=== PATIENT | male | born 1995 ===

== ENCOUNTER 2017-10-29 10:03 | Emergency (ER) | payer MEDICAID ==
--- NOTE | 2017-10-29 10:10 | ER Report ---
History and Physical Time Seen By MD: 10:09 HPI/ROS CHIEF COMPLAINT: Left wrist pain HISTORY OF PRESENT ILLNESS: Otherwise of a 22-year-old male comes emergency Department to left wrist pain stated that yesterday he fell up some stairs onto an outstretched left hand is have pain to the base of the distal radius of the left wrist no head or neck trauma no loss of consciousness no additional complaints noted has not iced or done anything else for REVIEW OF SYSTEMS: Respiratory: No cough, no dyspnea. Cardiovascular: No chest pain, no palpitations. Gastrointestinal: No vomiting, no abdominal pain. Musculoskeletal: Left wrist pain Remainder of the 14 system rev: Yes Allergies: Coded Allergies: No Known Drug Allergies (Unverified , 10/29/17) Home Meds No Active Prescriptions or Reported Meds Reviewed Nurses Notes: Yes Old Medical Records Reviewed: Yes Constitutional Vital Sign - Last 24 Hours 10/29/17 10:09 Temp 98.1 Pulse 89 Resp 14 B/P (MAP) 158/81 Pulse Ox 98 O2 Delivery Room Air Physical Exam General appearance: Alert no distress. Respiratory: Chest is non tender, lungs are clear to auscultation. Cardiac: Regular rate and rhythm [ ] Left wrist examination pain with extension and flexion primarily at the base of the distal radius neurovascularly intact pain with rotation supination and pronation no obvious swelling ecchymosis or bruising DIFFERENTIAL DIAGNOSIS: After history and physical exam differential diagnosis was considered for left wrist sprain versus fracture Medical Decision Making ED Course/Re-evaluation ED Course ED clinical course medical decision-making 22 you male in mechanical fall walking up stairs on an outstretched left wrist x-ray show no fractures dislocation subluxation we'll place in a restaurant wrist splint advised to rest ice compress elevate primary care follow-up as needed ibuprofen for discomfort Decision to Disposition Date: Oct 29, 2017 Decision to Disposition Time: 10:37 Depart Departure Latest Vital Signs Vital Signs Date Time Temp Pulse Resp B/P (MAP) Pulse Ox O2 Delivery O2 Flow Rate FiO2 10/29/17 10:09 98.1 89 14 158/81 98 Room Air Impression: Primary Impression: Wrist sprain Condition: Improved Disposition: HOME OR SELF-CARE New Scripts No Active Prescriptions or Reported Meds Patient Instructions: Wrist Sprain (DC) FLORA GUARDADO MD Oct 29, 2017 10:10
--- NOTE | 2017-10-29 10:35 | RADIOLOGY IMAGING REPORT ---
FACILITY: [facility] - [place] PATIENT NAME: Stanton Amaya : 1995 MR: [id number] V: [id number] EXAM DATE: [id number] ORDERING PHYSICIAN: FLORA GUARDADO TECHNOLOGIST: [place] [facility] [place] Patient: Stanton Amaya : 1995 Visit/Account:[id number] Date of Sevice: 10/29/2017 Exam type: WRIST LEFT MIN 3 VIEW History: Trauma Comparison: None. Findings: There is no evidence of acute fracture dislocation or significant arthritic change involving the left wrist. No radiopaque soft tissue foreign body seen IMPRESSION: 1. No acute osteoarticular abnormality the left wrist Report Dictated By: Mariposa Clemons MD at 10/29/2017 10:29 AM Report E-Signed By: Mariposa Clemons MD at 10/29/2017 10:31 AM WSN:[email or web address]
[2017-10-29 10:43] VITALS: BP 126/75
== END 2017-10-29 10:48 | disposition home or self-care (01) ==
LOC: ER 10:06
DX: S63.502A Unspecified sprain of left wrist, initial encounter (principal); W10.9XXA Fall (on) (from) unspecified stairs and steps, initial encounter
CPT/HCPCS: 99282

== ENCOUNTER 2017-11-20 16:40 | Emergency (ER) | payer SELFPAY ==
--- NOTE | 2017-11-20 17:01 | EKG ---
FACILITY: [facility] PATIENT NAME: CARLA OLIVER : [id number] MR: [id number] V: [id number] EXAM DATE: ORDERING PHYSICIAN: VANI GOMEZ TECHNOLOGIST: Nabeel Phillips Reason : Blood Pressure : / mmHG Vent. Rate : 088 BPM Atrial Rate : 088 BPM P-R Int : 120 ms QRS Dur : 098 ms QT Int : 342 ms P-R-T Axes : 055 070 049 degrees QTc Int : 413 ms Sinus rhythm Artifact in several leads - repeat if needed No previous ECGs available Confirmed by JONATHAN BURT ([id number]) on 11/21/2017 6:14:08 AM Referred By: Confirmed By:JONATHAN BURT
--- NOTE | 2017-11-20 17:01 | ER Report ---
History and Physical Time Seen By MD: 16:45 Hx. of Stated Complaint: PATIENT REPORTS THAT HE STARTED HAVING CHEST PAIN ABOUT AN HOUR AGO. HE HAS A HISTORY OF POTS AND REPORTS THAT HE HAS HAD A HEART ATTACK IN THE PAST HPI/ROS CHIEF COMPLAINT: Chest pain HISTORY OF PRESENT ILLNESS: Patient is a 22-year-old male who presents the ED with complaint of chest pain for the past hour. He states that he 1st noticed this while he was driving. He states that it is worse with taking deep breaths. Patient states he has felt a little short of breath during this. He denies any nausea or vomiting. Patient states that he has a history of pots which was diagnosed when he was 14 years old. He states that he may have been told at that time that he had a heart attack. He states that he has been anxious today and states that he has a history of anxiety. She denies any palpitations. He has not taken any medication and is not on any medications on a regular basis. REVIEW OF SYSTEMS: Constitutional: No fever, no chills. Eyes: No discharge. ENT: No sore throat. Cardiovascular: See history of present illness. Respiratory: See history of present illness. No cough. Gastrointestinal: No abdominal pain, no vomiting. Genitourinary: No hematuria. Musculoskeletal: No back pain. Skin: No rashes. Neurological: No headache. Allergies: Coded Allergies: No Known Drug Allergies (Unverified , 10/29/17) Home Meds No Active Prescriptions or Reported Meds Reviewed Nurses Notes: Yes Old Medical Records Reviewed: Yes Hx Substance Use Disorder: No Hx Alcohol Use: No Constitutional Vital Sign - Last 24 Hours 11/20/17 11/20/17 11/20/17 11/20/17 16:43 16:45 16:55 17:00 Temp 98.1 Pulse 82 79 Resp 24 14 B/P (MAP) 149/97 (114) 149/97 132/87 (102) Pulse Ox 99 98 O2 Delivery Room Air 11/20/17 11/20/17 11/20/17 17:25 17:30 17:40 Pulse 73 70 Resp 9 0 B/P (MAP) 137/89 (105) Pulse Ox 92 90 Physical Exam General Appearance: The patient is alert, has no immediate need for airway protection and no signs of toxicity. Patient appears to be in no acute distress. Eyes: Pupils equal and round no pallor or injection. ENT, Mouth: Mucous membranes are moist. Respiratory: There are no retractions, lungs are clear to auscultation. Cardiovascular: Regular rate and rhythm. Gastrointestinal: Patient has pain with palpation of the epigastric region. No bowel sounds in all 4 quadrants. No rebound or guarding is present. Skin: Warm and dry, no rashes. Musculoskeletal: Neck is supple non tender. Extremities are nontender, nonswollen and have full range of motion. DIFFERENTIAL DIAGNOSIS: After history and physical exam differential diagnosis was considered for chest pain including but not limited to myocardial ischemia, pericarditis pulmonary embolus, chest wall pain, pleural inflammation and pulmonary infectious causes. Medical Decision Making Data Points Result Diagram: 11/20/17 1647 11/20/17 1647 Laboratory Hematology Test 11/20/17 16:42 11/20/17 16:47 Lipase 144 U/L (23-300) Red Blood Count 5.61 M/uL (4.00-5.60) Mean Corpuscular Volume 88.4 fL (80.0-96.0) Mean Corpuscular Hemoglobin 31.9 pg (26.0-33.0) Mean Corpuscular Hemoglobin Concent 36.0 g/dL (32.0-36.0) Red Cell Distribution Width 13.2 % (11.5-14.5) Mean Platelet Volume 8.5 fL (7.2-11.1) Neutrophils (%) (Auto) 61.4 % (39.4-72.5) Lymphocytes (%) (Auto) 29.4 % (17.6-49.6) Monocytes (%) (Auto) 7.1 % (4.1-12.4) Eosinophils (%) (Auto) 1.5 % (0.4-6.7) Basophils (%) (Auto) 0.6 % (0.3-1.4) Nucleated RBC Relative Count (auto) 0.2 /100WBC Neutrophils # (Auto) 4.0 K/uL (2.0-7.4) Lymphocytes # (Auto) 1.9 K/uL (1.3-3.6) Monocytes # (Auto) 0.5 K/uL (0.3-1.0) Eosinophils # (Auto) 0.1 K/uL (0.0-0.5) Basophils # (Auto) 0.0 K/uL (0.0-0.1) Nucleated RBC Absolute Count (auto) 0.01 K/uL Sodium Level 141 mmol/L (137-145) Potassium Level 3.9 mmol/L (3.5-5.0) Chloride Level 102 mmol/L (98-107) Carbon Dioxide Level 26 mmol/L (22-30) Blood Urea Nitrogen 15 mg/dl (9-21) Creatinine 1.20 mg/dl (0.66-1.25) Glomerular Filtration Rate Calc > 60.0 Random Glucose 89 mg/dl (75-110) Calcium Level 9.7 mg/dl (8.4-10.2) Total Bilirubin 1.0 mg/dl (0.2-1.3) Aspartate Amino Transf (AST/SGOT) 36 U/L (0-35) Alanine Aminotransferase (ALT/SGPT) 32 U/L (0-56) Alkaline Phosphatase 82 U/L (0-126) Troponin I < 0.012 ng/ml B-Type Natriuretic Peptide 6 pg/ml (0-100) Total Protein 7.5 gm/dl (6.3-8.2) Albumin 4.7 g/dl (3.5-5.0) Chemistry Test 11/20/17 16:42 11/20/17 16:47 Lipase 144 U/L (23-300) White Blood Count 6.5 k/uL (4.5-11.0) Red Blood Count 5.61 M/uL (4.00-5.60) Hemoglobin 17.9 g/dL (14.0-18.0) Hematocrit 49.6 % (42.0-52.0) Mean Corpuscular Volume 88.4 fL (80.0-96.0) Mean Corpuscular Hemoglobin 31.9 pg (26.0-33.0) Mean Corpuscular Hemoglobin Concent 36.0 g/dL (32.0-36.0) Red Cell Distribution Width 13.2 % (11.5-14.5) Platelet Count 203 K/uL (150-450) Mean Platelet Volume 8.5 fL (7.2-11.1) Neutrophils (%) (Auto) 61.4 % (39.4-72.5) Lymphocytes (%) (Auto) 29.4 % (17.6-49.6) Monocytes (%) (Auto) 7.1 % (4.1-12.4) Eosinophils (%) (Auto) 1.5 % (0.4-6.7) Basophils (%) (Auto) 0.6 % (0.3-1.4) Nucleated RBC Relative Count (auto) 0.2 /100WBC Neutrophils # (Auto) 4.0 K/uL (2.0-7.4) Lymphocytes # (Auto) 1.9 K/uL (1.3-3.6) Monocytes # (Auto) 0.5 K/uL (0.3-1.0) Eosinophils # (Auto) 0.1 K/uL (0.0-0.5) Basophils # (Auto) 0.0 K/uL (0.0-0.1) Nucleated RBC Absolute Count (auto) 0.01 K/uL Glomerular Filtration Rate Calc > 60.0 Calcium Level 9.7 mg/dl (8.4-10.2) Total Bilirubin 1.0 mg/dl (0.2-1.3) Aspartate Amino Transf (AST/SGOT) 36 U/L (0-35) Alanine Aminotransferase (ALT/SGPT) 32 U/L (0-56) Alkaline Phosphatase 82 U/L (0-126) Troponin I < 0.012 ng/ml B-Type Natriuretic Peptide 6 pg/ml (0-100) Total Protein 7.5 gm/dl (6.3-8.2) Albumin 4.7 g/dl (3.5-5.0) EKG/Imaging EKG Interpretation 12 lead EKG: Rhythm: Normal sinus rhythm, rate 88 bpm [place]: normal QRS: normal ST segments: No acute ST changes identified. There is some T-wave inversion V1. Monitor Interpretation: Normal Sinus Rhythm Imaging Chest x-ray: IMPRESSION: 1. No acute cardiac pulmonary process is seen Report Dictated By: Mariposa Clemons MD at 11/20/2017 5:24 PM Report E-Signed By: Mariposa Clemons MD at 11/20/2017 5:25 PM ED Course/Re-evaluation ED Course Will obtain labs, EKG, chest x-ray. 11/20/2017 5:43:10 pm - his cussed all labs, EKG, chest x-ray with patient. Everything is essentially normal. Given his epigastric pain in his recent ingestion of a large amount of fried food this is likely gastritis related. Patient will be given a GI cocktail. 11/20/2017 6:01:49 pm - patient's epigastric pain resolved with GI cocktail. Will prescribe him some Prilosec. Decision to Disposition Date: November 20, 2017 Decision to Disposition Time: 18:02 Depart Departure Latest Vital Signs Vital Signs Date Time Temp Pulse Resp B/P (MAP) Pulse Ox O2 Delivery O2 Flow Rate FiO2 11/20/17 17:40 70 0 90 11/20/17 17:30 137/89 (105) 11/20/17 16:45 98.1 Room Air Impression: Primary Impression: Epigastric pain Condition: Improved Disposition: HOME OR SELF-CARE New Scripts Omeprazole (OMEPRAZOLE) 20 Mg Tablet. 20 MG PO QDAY, #14 TAB Prov: VANI GOMEZ PA-C 11/20/17 Patient Instructions: Epigastric Pain (ED), Gastritis (ED) Additional Instructions: Stay well-hydrated. Refrain from spicy, fried, fatty acidic foods. Follow-up with primary care provider in 2-3 days. If having any worsening concerning symptoms may return to the emergency department. VANI GOMEZ PA-C November 20, 2017 17:01
[2017-11-20 17:07] LABS: PLATELET COUNT, AUTOMATED 203 K/uL (150-450)
[2017-11-20 17:30] VITALS: BP 137/89
--- NOTE | 2017-11-20 17:30 | RADIOLOGY IMAGING REPORT ---
FACILITY: [facility] PATIENT NAME: Stanton Amaya : 1995 MR: [id number] V: [id number] EXAM DATE: ORDERING PHYSICIAN: VANI GOMEZ TECHNOLOGIST: Location: [facility] - [place] Patient: Stanton Amaya : 1995 Visit/Account:[id number] Date of Sevice: 11/20/2017 Exam type: CHEST PA AND LAT History: Chest Pain Comparison: None. Findings: The lungs are free of acute effusions, infiltrates or edema. There is no evidence of a pneumothorax or pneumomediastinum. Cardiac silhouette is normal in size. The trachea is in midline. IMPRESSION: 1. No acute cardiac pulmonary process is seen Report Dictated By: Mariposa Clemons MD at 11/20/2017 5:24 PM Report E-Signed By: Mariposa Clemons MD at 11/20/2017 5:25 PM WSN:[email or web address]
[2017-11-20] MEDS ORDERED: GI COCKTAIL 60 ML BTL PO PRN (17:35)
[2017-11-20] MEDS ORDERED: ATRO/SCOPOL/HYOSCY/PB 5 ML ELX PO ONE (17:40)
[2017-11-20] MEDS ORDERED: LIDOCAINE 2% VISC SLN 15ML UDC PO ONE (17:40)
[2017-11-20] MEDS ORDERED: MAG HYD/AL HYD/SIMETH 30ML UDC PO ONE (17:40)
[2017-11-20] MEDS ORDERED: OMEP-137 PO (18:03)
== END 2017-11-20 18:12 | disposition home or self-care (01) ==
LOC: ER 16:50
DX: R10.13 Epigastric pain (principal)
CPT/HCPCS: 71046; 82040; 82247; 82310; 82374; 82435; 82565; 82947; 83690; 83880; 84075; 84132; 84155; 84295; 84450; 84460; 84484; 84520; 85025; 93005; 99284